=== PATIENT | male | born 1940 | race Caucasian/White ===

== ENCOUNTER 2021-02-06 08:42 | Day surgery (SDC) | payer MEDICARE ==
[~2021-02-06] VITALS: Ht 172.7 cm; Wt 75.4 kg
[2021-02-06] MEDS ORDERED: GLIM2TAB7 PO (09:31)
[2021-02-06] MEDS ORDERED: PRAM0.12 PO (09:31)
[2021-02-06] MEDS ORDERED: LOVA20TA2 PO (09:31)
[2021-02-06] MEDS ORDERED: ASPI81TA45 PO (09:31)
[2021-02-06] MEDS ORDERED: LISI-170 PO (09:31)
[2021-02-06] MEDS ORDERED: SILO8CAP6 PO (09:31)
[2021-02-06 09:58] VITALS: BP 151/80
[2021-02-06] MEDS ORDERED: CEFAZOLIN PMX 1GM/50ML 50 ML IV ONE (10:00)
[2021-02-06] MEDS ORDERED: SODIUM CHLORIDE 0.9% 1,000 ML IV SCH (10:00)
[2021-02-06] MEDS ORDERED: LIDOCAINE 1%, 10ML ONE (10:30)
[2021-02-06] MEDS ORDERED: NALOXONE 1 MG/ML, 2ML ONE (10:41)
[2021-02-06] MEDS ORDERED: FENTANYL PF 100 MCG/2ML ONE (10:41)
[2021-02-06] MEDS ORDERED: FLUMAZENIL 0.1 MG/1 ML, 5ML ONE (10:41)
[2021-02-06] MEDS ORDERED: MIDAZOLAM 1 MG/ML, 5ML ONE (10:41)
[2021-02-06] MEDS ORDERED: CYSTO CONRAY II 250 ML VIAL UR ONE (11:42)
== END 2021-02-06 13:10 | disposition home or self-care (01) ==
LOC: OUT 08:42 → EDSTATUS 11:00 → OUT 13:10
PROVIDERS: ATTEND Urology
DX: R33.9 Retention of urine, unspecified (principal); N39.0 Urinary tract infection, site not specified; C61 Malignant neoplasm of prostate; I10 Essential (primary) hypertension; E11.9 Type 2 diabetes mellitus without complications; G25.81 Restless legs syndrome; E78.00 Pure hypercholesterolemia, unspecified; Z79.82 Long term (current) use of aspirin; Z79.899 Other long term (current) drug therapy; Z79.84 Long term (current) use of oral hypoglycemic drugs; Z88.8 Allergy status to other drugs, medicaments and biological substances; Z98.890 Other specified postprocedural states; Z80.8 Family history of malignant neoplasm of other organs or systems
CPT/HCPCS: 51102; 77002; 99156; 99157; C1725; J2250; J3010; Q9958; 51703; 75989; J2310